=== PATIENT | female | born 1990 | race Hispanic/Latino ===

== ENCOUNTER 2018-03-09 08:56 | Emergency (ER) | payer BC ==
[~2018-03-09] VITALS: Ht 149.9 cm; Wt 44.5 kg
[2018-03-09] MEDS ORDERED: KETOROLAC TROMETHAMINE 60 MG/2 ML VIAL IM ONE (09:15)
[2018-03-09] MEDS ORDERED: CYCLOBENZAPRINE HCL 10 MG TAB PO ONE (09:15)
[2018-03-09 09:45] VITALS: BP 112/79
[2018-03-09] MEDS ORDERED: HYDROCODONE/APAP 5MG-325MG TAB PO ONE (09:45)
== END 2018-03-09 10:00 | disposition home or self-care (01) ==
LOC: FSED 08:56
DX: M54.6 Pain in thoracic spine (principal); S29.012A Strain of muscle and tendon of back wall of thorax, initial encounter; S29.011A Strain of muscle and tendon of front wall of thorax, initial encounter
CPT/HCPCS: 99283; J1885

== ENCOUNTER → 2018-04-07 | Day surgery (SDC) | payer BC ==
[~2018-04-07] MED LIST: FENTANYL CITRATE/PF 100MCG/2 ML INJ ONE; GLUCAGON FOR INJ 1 MG VIAL ONE; LEXAPRO10 MG PO; METHOCARBAMOL750 MG PO; MIDAZOLAM HCL 2 MG/2 ML VIAL ONE; NORCO 5-325 TA1 EACH PO; PROPOFOL IV EMULSION 10 MG/ML 50 ML VIAL ONE
[2018-04-07 14:25] VITALS: BP 106/88
[2018-04-07 14:32] LABS: C DIFFICILE TOXIN A&B AMP PROB NEGATIVE (NEGATIVE); WBC,FECAL (FECAL LACTOFERRIN) POSITIVE (NEGATIVE)
--- NOTE | 2018-04-07 14:43 | Operative Report ---
DATE OF PROCEDURE: April 07, 2018 PROCEDURES PERFORMED 1. Esophagogastroduodenoscopy with biopsies. 2. Colonoscopy with polypectomy and biopsies. INDICATIONS FOR EGD: Dyspepsia. INDICATIONS FOR COLONOSCOPY: Chronic diarrhea and fecal incontinence. MEDICATION: Patient was done under MAC. Please see anesthesiologist's note. PROCEDURE: With the patient in the left lateral decubitus position, the flexible fiberoptic Olympus gastroscope was introduced into the esophagus under direct visualization without any difficulty. There was some patchy erythema noted in the distal esophagus. The scope was then advanced with ease into the stomach. Mucosa overlying the antrum and the body revealed some patchy erythema and mild to moderate edema, and biopsies were obtained and sent to stain for H. pylori. The pylorus was of normal contour and shape. It was intubated with ease, and the scope was advanced all the way to the 2nd portion of the duodenum. Biopsies were obtained from the proximal 2nd portion and the duodenal bulb to rule out sprue. The scope was then withdrawn back into the stomach and retroflexed. The mucosa overlying the fundus and the cardia appeared to be within normal limits. The scope was then straightened out. The stomach was decompressed. Scope was subsequently withdrawn. Patient tolerated the procedure well. IMPRESSION 1. Distal esophagitis. 2. Gastritis, biopsied. Biopsies sent to stain for H. pylori. 3. Rule out sprue. PLAN: Follow up histology. Initiate Protonix 40 mg 1 p.o. q.a.m. a.c. The patient was then turned around. After adequate lubrication of the anal canal, a flexible fiberoptic Olympus colonoscope was inserted into the rectum with ease and advanced all the way to the cecum. The mucosa overlying the cecum appeared to be within normal limits. The ileocecal valve was intubated, and the scope was advanced into the terminal ileum. Biopsies were obtained. The scope was then withdrawn back into the colon. It was then withdrawn slowly, and the mucosa overlying the ascending, transverse, descending and sigmoid revealed some patchy, mild, inflammatory changes. Multiple random biopsies were obtained. One polyp was snared from the rectum. Biopsies also were obtained from the rectum. The scope was then retroflexed into the distal rectum, and small internal hemorrhoids were noted, none of which was actively bleeding. The scope was then straightened out. It was subsequently withdrawn after securing an adequate stool specimen that was sent for the appropriate stool studies. Patient tolerated the procedure well. IMPRESSION 1. Mild patchy colitis. 2. Proctitis, mild. 3. Rectal polyp, snared. 4. Internal hemorrhoids, none actively bleeding. PLAN: Follow up histology. Follow up stool studies. Initiate VSL #3 one p.o. daily and Bentyl 10 mg 1 p.o. t.i.d. Timing of followup colonoscopy pending pathology. Job#: [id number]
== END | disposition home or self-care (01) ==
LOC: OR 08:55
PROVIDERS: ATTEND Internal Medicine Gastroenterology
DX: K29.70 Gastritis, unspecified, without bleeding (principal); R15.9 Full incontinence of feces; K52.89 Other specified noninfective gastroenteritis and colitis; R10.13 Epigastric pain; R15.2 Fecal urgency; F41.8 Other specified anxiety disorders; K52.9 Noninfective gastroenteritis and colitis, unspecified; K20.9 Esophagitis, unspecified; K62.89 Other specified diseases of anus and rectum; K62.1 Rectal polyp; K64.8 Other hemorrhoids
CPT/HCPCS: 43239; 45385; 81025; 83630; 83993; 87045; 87177; 87328; 87493; J1610; J2250; J2704; 45378; 45380; 45384

== ENCOUNTER → 2018-04-20 | Outpatient (RCR) | payer BC ==
[~2018-04-20] MED LIST changes: -FENTANYL CITRATE/PF 100MCG/2 ML INJ ONE; -GLUCAGON FOR INJ 1 MG VIAL ONE; -MIDAZOLAM HCL 2 MG/2 ML VIAL ONE; -PROPOFOL IV EMULSION 10 MG/ML 50 ML VIAL ONE
== END ==
LOC: PT 04-13 08:54
PROVIDERS: ATTEND Psychiatry & Neurology Clinical Neurophysiology
DX: M47.22 Other spondylosis with radiculopathy, cervical region (principal); R53.1 Weakness; M62.81 Muscle weakness (generalized)

== ENCOUNTER 2018-05-18 13:00 | Outpatient (RCR) | payer BC | END 2018-05-21 | LOC: PT 13:00 | PROVIDERS: ATTEND Psychiatry & Neurology Clinical Neurophysiology | DX: M47.22 Other spondylosis with radiculopathy, cervical region (principal); R53.1 Weakness; M62.81 Muscle weakness (generalized) | CPT/HCPCS: 97139 ==

== ENCOUNTER 2018-06-15 09:00 | Outpatient (RCR) | payer BC | END 2018-06-20 | LOC: PT 09:00 | PROVIDERS: ATTEND Psychiatry & Neurology Clinical Neurophysiology | DX: M47.22 Other spondylosis with radiculopathy, cervical region (principal); R53.1 Weakness; M62.81 Muscle weakness (generalized) | CPT/HCPCS: 97139 ==

== ENCOUNTER → 2018-08-04 | Outpatient (CLI) | payer BC ==
--- NOTE | 2018-08-04 17:14 | Diagnostic Imaging Report ---
FLUOROSCOPIC SMALL BOWEL SERIES CUSTOM VAN CONVERTER(S): Ravinder Boston MD Indication: Crohn's disease without complication. Comparison: None. Radiation Dose: Total dose: 5.6 mGy Total fluoroscopy time: 0.8 minutes Procedure: Small bowel follow through exam was performed using oral barium. Preliminary image was obtained before administration of contrast and serial overhead images were obtained after administration of oral barium. Fluoroscopy was performed and spot images were obtained. DISCUSSION: PLOW SHAKER: The bowel gas pattern is non-obstructive. No acute bony abnormality. Moderate amount of stool in the colon. STOMACH: Unremarkable mucosal pattern. SMALL BOWEL: Bulb and sweep are normal. Duodenal-jejunal junction is in the normal expected position. Small bowel loops are normal in caliber and distribution. There is no evidence of fistula, mucosal changes, stricture or dilation. The transit time was within normal limits. Spot image of the terminal ileum was unremarkable. COLON: Filling defects within the proximal colon likely reflect stool contents. IMPRESSION: Unremarkable fluoroscopic small bowel series. Signed by: Dr. Ravinder Boston MD on 08/04/2018 5:11 PM
== END ==
LOC: DX 07:45
PROVIDERS: ATTEND Internal Medicine Gastroenterology
DX: K50.90 Crohn's disease, unspecified, without complications (principal)
CPT/HCPCS: 74250

== ENCOUNTER 2018-11-14 14:04 | Emergency (ER) | payer BC, OTHER ==
[~2018-11-14] VITALS: Ht 149.9 cm; Wt 54.9 kg
--- OUTSIDE RECORDS SUMMARY | 2018-11-14 14:09 | XMS REPORT ---
[facility] Address Unknown Phone Unavailable Care Team Providers Care Elevator Worker Name Role Phone DEENA RODRIGUEZ Unavailable Unavailable Payers Payer Name Policy Type Policy Number Effective Date Expiration Date Problems This patient has no known problems. Allergies, Adverse Reactions, Alerts Allergy Name Allergy Type Status Severity Reaction(s) Onset Date Inactive Date Treating Clinician Comments No Known Allergies DA Active U 2015-10-28 00:00:00 Medications This patient has no known medications. Results Test Description Test Time Test Comments Text Results Atomic Results Result Comments - US TRANSVAGINAL NON OB 2018-11-02 16:20:00 Name: KAITY MARTINEZ [facility] : 1990 Age/S: 28 / F [address] [place] [address] Unit #: [id number] Loc: [place] [address] Phys: Samra Robins Acct: [id number] Dis Date: Status: REG CLI PHONE #: [phone] Exam Date: 11/02/2018 1142 FAX #: [phone] Reason: MENORRHAGIA EXAMS: CPT CODE: [id number] [place] [address] EXAMINATION: Pelvic ultrasound 11/02/2018. CLINICAL HISTORY: Menorrhagia with regular cycle. COMPARISON: None. FINDINGS: Transabdominal and transvaginal pelvic ultrasound was performed using grayscale, color Doppler, and spectral analysis. The uterus measures 8.1 x 4.0 x 4.8 cm. The endometrium measures 9 mm in AP diameter. The endometrium is mildly heterogeneous in appearance but without well-defined focal abnormality. The myometrial echotexture is diffusely heterogeneous suggesting adenomyosis. No convincing fibroids are evident. The ovaries are within normal limits in size and sonographic appearance. The right ovary measures 3.7 x 2.2 x 2.6 cm and the left ovary measures 3.7 x 1.8 x 2.7 cm. Both ovaries demonstrate flow on Doppler evaluation. No free fluid is p resent in the pelvis. IMPRESSION: 1. Heterogeneous myometrial echotexture suggesting adenomyosis. 2. No other sonographic abnormalities in the pelvis. at 1620 Reported and signed by: Araceli Chang M.D. CC: Samra HAMILTON Technologist: Summer Torres RDMS (AB) (OB) Trnscb Date/Time: 11/02/2018 (1620) [facility] [place] [facility] D/T: S: 11/02/2018 (3973) Probe: [id number] PAGE 1 Signed Report - DUP AB/PEL/SC COMP 2018-11-02 16:20:00 Name: KAITY MARTINEZ [facility] : 1990 Age/S: 28 / F [address] [place] [address] Unit #: [id number] Loc: [place] [address] Phys: Samra Robins Acct: [id number] Dis Date: Status: REG CLI PHONE #: [phone] Exam Date: 11/02/2018 1142 FAX #: [phone] Reason: MENORRW/ REG CYCLE EXAMS: CPT CODE: [id number] DUP AB/PEL/SC COMP 80397 EXAMINATION: Pelvic ultrasound 11/02/2018. CLINICAL HISTORY: Menorrhagia with regular cycle. COMPARISON: None. FINDINGS: Transabdominal and transvaginal pelvic ultrasound was performed using grayscale, color Doppler, and spectral analysis. The uterus measures 8.1 x 4.0 x 4.8 cm. The endometrium measures 9 mm in AP diameter. The endometrium is mildly heterogeneous in appearance but without well-defined focal abnormality. The myometrial echotexture is diffusely heterogeneous suggesting adenomyosis. No convincing fibroids are evident. The ovaries are within normal limits in size and sonographic appearance. The right ovary measures 3.7 x 2.2 x 2.6 cm and the left ovary measures 3.7 x 1.8 x 2.7 cm. Both ovaries demonstrate flow on Doppler evaluation. No free fluid is p resent in the pelvis. IMPRESSION: 1. Heterogeneous myometrial echotexture suggesting adenomyosis. 2. No other sonographic abnormalities in the pelvis. at 1620 Reported and signed by: Araceli Chang M.D. CC: Samra HAMILTON Technologist: Summer Torres RDMS (AB) (OB) Trnscb Date/Time: 11/02/2018 (1619) [facility] [place] Orig Print D/T: S: 11/02/2018 (8306) Probe: PAGE 1 Signed Report - US PELVIS COMPLETE 2018-11-02 16:20:00 Name: KAITY MARTINEZ [facility] : 1990 Age/S: 28 / F [address] [place] [address] Blvd Unit #: [id number] Loc: [place] [address] Phys: Samra Robins Acct: [id number] Dis Date: Status: REG CLI PHONE #: [phone] Exam Date: 11/02/2018 110 FAX #: [phone] Reason: MENORRHAGIA WITH REG CYCLE N92.0 EXAMS: CPT CODE: [id number] US PELVIS COMPLETE 34519 EXAMINATION: Pelvic ultrasound 11/02/2018. CLINICAL HISTORY: Menorrhagia with regular cycle. COMPARISON: None. FINDINGS: Transabdominal and transvaginal pelvic ultrasound was performed using grayscale, color Doppler, and spectral analysis. The uterus measures 8.1 x 4.0 x 4.8 cm. The endometrium measures 9 mm in AP diameter. The endometrium is mildly heterogeneous in appearance but without well-defined focal abnormality. The myometrial echotexture is diffusely heterogeneous suggesting adenomyosis. No convincing fibroids are evident. The ovaries are within normal limits in size and sonographic appearance. The right ovary measures 3.7 x 2.2 x 2.6 cm and the left ovary measures 3.7 x 1.8 x 2.7 cm. Both ovaries demonstrate flow on Doppler evaluation. No free fluid is p resent in the pelvis. IMPRESSION: 1. Heterogeneous myometrial echotexture suggesting adenomyosis. 2. No other sonographic abnormalities in the pelvis. at 1620 Reported and signed by: Araceli Chang M.D. CC: Samra HAMILTON Technologist: Summer Torres RDMS (AB) (OB) Trnscb Date/Time: 11/02/2018 (1620) [facility] [place] Orig Print D/T: S: 11/02/2018 (5414) Probe: PAGE 1 Signed Report SMALL BOWEL SERIES 2018-08-04 09:54:00 [place] [address] Patient Name: KAITY MARTINEZ MR #: [id number] : 1990 Age/Sex: 27/F Req #: [id number] Adm Physician: Ordered by: DEENA RODRIGUEZ MD Report #: [id number] Location: DX Room/Bed: Procedure: [id number] DX/SMALL BOWEL SERIES Exam Date: 08/04/18 Exam Time: 0800 REPORT STATUS: Signed FLUOROSCOPIC SMALL BOWEL SERIES FOREST NURSERY SUPERVISOR(S): Agatha Marshall MD Indication: Crohn's disease without complication. Comparison: None. Radiation Dose: Total dose: 5.6 mGy Total fluoroscopy time: 0.8 minutes Procedure: Small bowel follow through exam was performed using oral barium. Preliminary image was obtained before administration of contrast and serial overhead images were obtained after administration of oral barium. Fluoroscopy was performed and spot images were obtained. DISCUSSION: SKIN CARE INSTRUCTOR: The bowel gas pattern is non-obstructive. No acute bony abnormality. Moderate amount of stool in the colon. STOMACH: Unremarkable mucosal pattern. SMALL BOWEL: Bulb and sweep are normal. Duodenal-jejunal junction is in the normal expected position. Small bowel loops are normal in caliber and distribution. There is no evidence of fistula, mucosal changes, stricture or dilation. The transit time was within normal limits. Spot image of the terminal ileum was unremarkable. COLON: Filling defects within the proximal colon likely reflect stool contents. IMPRESSION: Unremarkable fluoroscopic small bowel series. Signed by: Dr. Agatha Marshall MD on 08/04/2018 5:11 PM Dictated By: AGATHA MARSHALL MD 10 Transcribed By: PALLAVI on 08/04/181710 COPY TO: DEENA RODRIGUEZ MD
[2018-11-14] MEDS ORDERED: CIPROFLOXACIN 500 MG TAB ONE (15:08)
[2018-11-14] MEDS: CIPROFLOXACIN 500 MG TAB PO SCH (15:25)
== END 2018-11-14 18:02 | disposition home or self-care (01) ==
LOC: FSED 14:04
DX: Z00.00 Encounter for general adult medical examination without abnormal findings (principal); Z20.811 Contact with and (suspected) exposure to meningococcus; Z20.09 Contact with and (suspected) exposure to other intestinal infectious diseases
CPT/HCPCS: 99282

== ENCOUNTER 2020-07-14 23:07 | Emergency (ER) | payer BC, OTHER ==
[~2020-07-14] VITALS: Ht 149.9 cm; Wt 54.0 kg
[2020-07-15 00:56] VITALS: BP 124/78
== END 2020-07-15 00:56 | disposition home or self-care (01) ==
LOC: FSED 07-15 00:10
DX: R10.2 Pelvic and perineal pain (principal); F41.9 Anxiety disorder, unspecified; Z87.19 Personal history of other diseases of the digestive system
CPT/HCPCS: 99282